=== PATIENT | female | born 1945 | race Caucasian/White ===

== ENCOUNTER 2023-11-30 08:52 | Inpatient (IN) | payer OTHER ==
[~2023-11-30] VITALS: Ht 154.9 cm; Wt 46.2 kg
[2023-11-30 09:44] LABS: Basophils # (auto) 0 10 ^3/uL (0-0.2); Basophils % (auto) 0.5 % (0.0-2.0); Eosinophils # (auto) 0 10 ^3/uL (0-0.8); Eosinophils % (auto) 0.3 % (0.0-7.0); Hematocrit 32.9 % (36.0-46.0); Lymphocytes # (auto) 1.2 10 ^3/uL (0.4-5.4); Lymphocytes % (auto) 16.6 % (10.0-50.0); Mean Corpuscular Hemoglobin 30.7 pg (28.0-32.0); Mean Corpuscular Hgb Conc. 33.4 g/dL (32.0-36.0); Monocytes # (auto) 0.6 10 ^3/uL (0-1.3); Monocytes % (auto) 8.2 % (0.0-12.0); Neutrophils # (auto) 5.4 10 ^3/uL (1.6-8.6); Neutrophils % (auto) 74.4 % (37.0-80.0); Red Blood Cells 3.57 10^6/uL (4.0-5.20); Red Cell Distribution Width 13.5 % (11.8-14.3); White Blood Cell 7.3 10^3/uL (4.4-10.8)
[2023-11-30 10:01] LABS: Alanine Aminotransferase 12 U/L (7-40); Albumin 3.9 g/dL (3.2-4.8); Alkaline Phosphatase 51 U/L (46-116); Anion Gap 14 (5-15); Aspartate Aminotransferase 16 U/L (13-40); BUN/Creatinine Ratio 30.8 (10.0-20.0); Bilirubin, Total 0.7 mg/dL (0.2-1.0); Carbon Dioxide 14 mmol/L (20-30); Chloride 106 mmol/L (98-107); Glucose 93 mg/dL (74-106); Potassium 3.6 mmol/L (3.5-5.1); Sodium 134 mmol/L (136-145); Total Protein 5.9 g/dL (5.7-8.2)
[2023-11-30 10:08] LABS: Blood Urea Nitrogen 93 mg/dL (9-23)
[2023-11-30] MEDS: SODIUM CHLORIDE 0.9% 1,000 ML IV ONE ×3 (11:37→13:30)
[2023-11-30 12:51] LABS: Urine Bacteria FEW /hpf (None Seen); Urine Blood Negative /uL (Negative); Urine Clarity Clear (Clear); Urine Color Colorless (Yellow); Urine Protein, UAD Negative (Negative); Urine Specific Gravity 1.007 (1.001-1.035); Urine Urobilinogen Normal (Negative); Urine WBC 1 /hpf (0 - 5)
[2023-11-30 13:08] VITALS: PULSE 81; RESP 17; O2SAT 100
[2023-11-30] MEDS ORDERED: NITROGLYCERIN 0.4 MG SL TAB SL PRN (13:30)
[2023-11-30] MEDS: levoFLOXacin 250MG 50 ML IV SCH (14:45)
[2023-11-30] MEDS: levoFLOXacin 500MG 100 ML IV ONE (14:45)
[2023-11-30 15:25] LABS: Rapid Influenza A Negative (Negative); Rapid Influenza B Negative (Negative)
[2023-11-30 15:31] LABS: COVID19 ANTIGEN SOFIA FIA NEGATIVE (NEGATIVE)
[2023-11-30] MEDS: cefTRIAXone 1GM/50ML D5W 50 ML IV ONE (16:01)
[2023-11-30] MEDS: SODIUM BICARBONATE 650 MG TAB PO SCH (23:17)
[2023-11-30] MEDS: MELATONIN 5 MG TAB PO SCH (23:17)
[2023-12-01] VITALS (8 sets, daily range): BP systolic 107–121; BP diastolic 50–79; PULSE 60–86; RESP 16–20; TEMP 97.5–98.4; O2SAT 97–100
[2023-12-01 07:04] LABS: Basophils # (auto) 0 10 ^3/uL (0-0.2); Basophils % (auto) 0.7 % (0.0-2.0); Eosinophils # (auto) 0 10 ^3/uL (0-0.8); Eosinophils % (auto) 0.5 % (0.0-7.0); Hematocrit 26.8 % (36.0-46.0); Lymphocytes % (auto) 16.6 % (10.0-50.0); Mean Corpuscular Hemoglobin 30.4 pg (28.0-32.0); Mean Corpuscular Hgb Conc. 33.4 g/dL (32.0-36.0); Mean Corpuscular Volume 90.9 fL (80.0-100.0); Monocytes # (auto) 0.5 10 ^3/uL (0-1.3); Monocytes % (auto) 7.8 % (0.0-12.0); Neutrophils # (auto) 4.4 10 ^3/uL (1.6-8.6); Neutrophils % (auto) 74.4 % (37.0-80.0); Red Blood Cells 2.95 10^6/uL (4.0-5.20); Red Cell Distribution Width 13.6 % (11.8-14.3); White Blood Cell 5.9 10^3/uL (4.4-10.8)
[2023-12-01 07:14] LABS: Albumin 3.1 g/dL (3.2-4.8); Alkaline Phosphatase 40 U/L (46-116); Anion Gap 11 (5-15); Aspartate Aminotransferase 16 U/L (13-40); BUN/Creatinine Ratio 22.4 (10.0-20.0); Bilirubin, Total 0.4 mg/dL (0.2-1.0); Carbon Dioxide 13 mmol/L (20-30); Glucose 78 mg/dL (74-106); Potassium 3.3 mmol/L (3.5-5.1); Sodium 140 mmol/L (136-145)
[2023-12-01 07:17] LABS: Chloride 116 mmol/L (98-107)
[2023-12-01 07:18] LABS: Alanine Aminotransferase < 9 U/L (7-40); Blood Urea Nitrogen 56 mg/dL (9-23)
[2023-12-01] MEDS: ACETAMINOPHEN 500 MG TAB PO PRN (10:14)
[2023-12-01] MEDS: POTASSIUM CHL 20 Meq TABLET PO ONE (10:15)
[2023-12-01] MEDS: cefTRIAXone 1GM/50ML D5W 50 ML IV SCH (10:15)
[2023-12-01] MEDS: PANTOPRAZOLE 40 MG/10 ML VIAL INJ IV SCH (10:16)
[2023-12-01] MEDS: SODIUM CHLORIDE 0.9% 1,000 ML IV SCH (10:19)
[2023-12-01] MEDS: Ensure HIGH Protein Chocolate 8oz Bottle PO SCH (13:21)
[2023-12-01] MEDS: SODIUM BICARB 50mEq/50ml Vial 50 ML in SOD CHL 0.45% 1,000 ML IV SCH (18:44)
[2023-12-02] VITALS (7 sets, daily range): BP systolic 119–139; BP diastolic 51–58; PULSE 60–88; RESP 18–22; TEMP 97.9–98.3; O2SAT 98–99
[2023-12-02 06:45] LABS: Basophils # (auto) 0 10 ^3/uL (0-0.2); Eosinophils # (auto) 0.1 10 ^3/uL (0-0.8); Hematocrit 25.2 % (36.0-46.0); Hemoglobin 8.2 g/dL (12.2-16.2); Monocytes # (auto) 0.4 10 ^3/uL (0-1.3); Monocytes % (auto) 8.6 % (0.0-12.0); Nucleated Red Blood Cells % 0.1 %; Red Blood Cells 2.74 10^6/uL (4.0-5.20)
[2023-12-02 06:49] LABS: Basophils % (auto) 0.8 % (0.0-2.0); Lymphocytes % (auto) 19.1 % (10.0-50.0); Mean Corpuscular Hgb Conc. 32.7 g/dL (32.0-36.0); Mean Corpuscular Volume 91.8 fL (80.0-100.0); Neutrophils # (auto) 3.5 10 ^3/uL (1.6-8.6); Neutrophils % (auto) 70.5 % (37.0-80.0)
[2023-12-02 06:53] LABS: Alkaline Phosphatase 37 U/L (46-116); Anion Gap 10 (5-15); BUN/Creatinine Ratio 18.7 (10.0-20.0); Calcium 7.5 mg/dL (8.7-10.4); Carbon Dioxide 14 mmol/L (20-30); Chloride 116 mmol/L (98-107); Glucose 74 mg/dL (74-106); Potassium 3.2 mmol/L (3.5-5.1); Sodium 140 mmol/L (136-145)
[2023-12-02 06:54] LABS: Albumin 2.8 g/dL (3.2-4.8); Aspartate Aminotransferase 11 U/L (13-40); Bilirubin, Total 0.4 mg/dL (0.2-1.0); Blood Urea Nitrogen 43 mg/dL (9-23); Total Protein 4.5 g/dL (5.7-8.2)
[2023-12-02 06:55] LABS: Alanine Aminotransferase < 9 U/L (7-40)
[2023-12-02 07:03] LABS: Magnesium 0.9 mg/dL (1.6-2.6)
[2023-12-02] MEDS: LIDOCAINE 5% TOPICAL PATCH TOP SCH (09:10)
[2023-12-02] MEDS: MAGNESIUM SULFATE 1GM/100ML 100 ML IV SCH (10:42)
[2023-12-02] MEDS: MAGNESIUM SULFATE 1GM/100ML 100 ML IV ONE ×2 (12:17→13:51)
[2023-12-02] MEDS: LACTATED RINGER'S 1,000 ML IV SCH ×2 (13:37→21:30)
[2023-12-02] MEDS: POTASSIUM CHL 20 Meq TABLET PO ONE (13:38)
[2023-12-02 16:46] LABS: Creatinine, Urine 30.82 mg/dL (30.0-125.0)
[2023-12-02 18:51] LABS: Albumin 2.9 g/dL (3.2-4.8); Alkaline Phosphatase 65 U/L (46-116); Anion Gap 11 (5-15); Aspartate Aminotransferase 12 U/L (13-40); BUN/Creatinine Ratio 15.9 (10.0-20.0); Bilirubin, Total < 0.2 mg/dL (0.2-1.0); Blood Urea Nitrogen 36 mg/dL (9-23); Calcium 7.9 mg/dL (8.7-10.4); Carbon Dioxide 15 mmol/L (20-30); Chloride 116 mmol/L (98-107); Glucose 133 mg/dL (74-106); Potassium 3.3 mmol/L (3.5-5.1); Sodium 142 mmol/L (136-145); Total Protein 4.8 g/dL (5.7-8.2)
[2023-12-02 18:55] LABS: Alanine Aminotransferase 9 U/L (7-40)
[2023-12-03] VITALS (7 sets, daily range): BP systolic 125–155; BP diastolic 54–66; PULSE 72–94; RESP 19–22; TEMP 97.5–98.1; O2SAT 98–99
[2023-12-03 06:58] LABS: Magnesium 1.7 mg/dL (1.6-2.6)
[2023-12-03 06:59] LABS: Phosphorus 3.3 mg/dL (2.4-5.1)
[2023-12-03 08:26] LABS: Alanine Aminotransferase 10 U/L (7-40); Albumin 2.7 g/dL (3.2-4.8); Alkaline Phosphatase 46 U/L (46-116); Anion Gap 10 (5-15); Aspartate Aminotransferase 13 U/L (13-40); BUN/Creatinine Ratio 14.9 (10.0-20.0); Bilirubin, Total 0.4 mg/dL (0.2-1.0); Blood Urea Nitrogen 31 mg/dL (9-23); Calcium 8.4 mg/dL (8.5-10.1); Carbon Dioxide 16 mmol/L (20-30); Chloride 116 mmol/L (98-107); Glucose 100 mg/dL (74-106); Potassium 3.4 mmol/L (3.5-5.1); Sodium 142 mmol/L (136-145); Total Protein 4.3 g/dL (5.7-8.2)
[2023-12-03] MEDS: MAGNESIUM SULFATE 1GM/100ML 100 ML IV SCH (09:09)
[2023-12-03] MEDS ORDERED: LACTATED RINGER'S 1,000 ML IV ONE (11:30)
[2023-12-03 12:28] LABS: Triglycerides 58 mg/dL (< 150)
[2023-12-03 12:29] LABS: LDL Cholesterol 18 mg/dL (< 100)
[2023-12-03 12:30] LABS: Cholesterol 83 mg/dL (< 200); HDL Cholesterol 47 mg/dL (40-59)
[2023-12-03] MEDS ORDERED: hydrALAZINE HCL 20 MG/ML VL IV PRN (13:15)
[2023-12-03] MEDS: MORPHINE SULFATE INJ 2 MG/ml SYRG IV PRN ×2 (14:17→23:43)
[2023-12-03] MEDS: ONDANSETRON HCL 4 MG/2 ML VIAL IV PRN (14:21)
[2023-12-03] MEDS: POTASSIUM CHL 20MEQ/100ML 100 ML IV ONE (14:24)
[2023-12-03] MEDS: D5W/LACTATED RINGERS 1,000 ML IV ONE (14:24)
[2023-12-03] MEDS: AMINO ACID INFUSION IN D10W 1,000 ML IV SCH (19:52)
[2023-12-03] MEDS: ACCU-CHEK COMFORT CURVE STRIP VI SCH (23:46)
[2023-12-03] MEDS: InsuLIN REG 1unit/0.01ml Soln (100units/ml) SC SCH (23:49)
[2023-12-04] MEDS ORDERED: DEXTROSE (50%) 50ML SYRG IV SCH
[2023-12-04 05:00] VITALS: BP 109/55; PULSE 99; RESP 20; TEMP 97.8; O2SAT 96
[2023-12-04 08:00] VITALS: PULSE 102
[2023-12-04 08:23] LABS: Basophils # (auto) 0 10 ^3/uL (0-0.2); Basophils % (auto) 0.3 % (0.0-2.0); Eosinophils # (auto) 0 10 ^3/uL (0-0.8); Eosinophils % (auto) 0.1 % (0.0-7.0); Hematocrit 28.7 % (36.0-46.0); Hemoglobin 8.9 g/dL (12.2-16.2); Lymphocytes # (auto) 0.6 10 ^3/uL (0.4-5.4); Lymphocytes % (auto) 5.3 % (10.0-50.0); Mean Corpuscular Hemoglobin 29.8 pg (28.0-32.0); Mean Corpuscular Hgb Conc. 30.9 g/dL (32.0-36.0); Mean Corpuscular Volume 96.7 fL (80.0-100.0); Monocytes % (auto) 8.4 % (0.0-12.0); Neutrophils # (auto) 10.1 10 ^3/uL (1.6-8.6); Neutrophils % (auto) 85.9 % (37.0-80.0); Red Blood Cells 2.97 10^6/uL (4.0-5.20); Red Cell Distribution Width 15.5 % (11.8-14.3); White Blood Cell 11.8 10^3/uL (4.4-10.8)
[2023-12-04] MEDS ORDERED: CLINIMIX PER PHARMACY 0 ML IV SCH (10:00)
[2023-12-04 10:11] LABS: Chloride 114 mmol/L (98-107); Sodium 139 mmol/L (136-145)
[2023-12-04 10:20] LABS: Calcium 8.8 mg/dL (8.5-10.1); Carbon Dioxide 18 mmol/L (20-30)
[2023-12-04 10:24] LABS: Alkaline Phosphatase 53 U/L (46-116)
[2023-12-04 10:25] LABS: BUN/Creatinine Ratio 13.9 (10.0-20.0); Blood Urea Nitrogen 28 mg/dL (9-23); Glucose 106 mg/dL (74-106)
[2023-12-04 10:27] LABS: Albumin 2.8 g/dL (3.2-4.8)
[2023-12-04 10:28] LABS: Bilirubin, Total 0.2 mg/dL (0.2-1.0); Phosphorus 2.8 mg/dL (2.4-5.1); Total Protein 4.5 g/dL (5.7-8.2)
[2023-12-04 10:48] LABS: Aspartate Aminotransferase 29 U/L (13-40)
[2023-12-04 11:01] LABS: Alanine Aminotransferase < 9 U/L (7-40); Potassium 5.5 mmol/L (3.5-5.1)
[2023-12-04 12:06] LABS: Magnesium 2.1 mg/dL (1.6-2.6)
[2023-12-04] MEDS: SODIUM CHLORIDE 0.9% 1,000 ML IV SCH (12:10)
[2023-12-04 13:00] VITALS: BP 166/83; PULSE 96; RESP 20; TEMP 98; O2SAT 100
[2023-12-04 13:04] LABS: Anion Gap 7 (5-15)
[2023-12-04 17:09] VITALS: BP 144/68; PULSE 93; RESP 20; TEMP 98.3; O2SAT 95
[2023-12-04] MEDS: CEFEPIME 1GM/ 50ML 50 ML IV SCH (17:21)
[2023-12-04 20:00] VITALS: PULSE 95
[2023-12-04 22:00] VITALS: BP 141/67; PULSE 101; RESP 18; TEMP 98.4; O2SAT 95
[2023-12-05] VITALS (7 sets, daily range): BP systolic 115–138; BP diastolic 53–70; PULSE 84–100; RESP 17–19; TEMP 97.7–98.6; O2SAT 94–98
[2023-12-05 05:24] LABS: Basophils # (auto) 0 10 ^3/uL (0-0.2); Basophils % (auto) 0.2 % (0.0-2.0); Eosinophils # (auto) 0 10 ^3/uL (0-0.8); Eosinophils % (auto) 0.3 % (0.0-7.0); Hematocrit 28.9 % (36.0-46.0); Hemoglobin 9.4 g/dL (12.2-16.2); Lymphocytes # (auto) 0.9 10 ^3/uL (0.4-5.4); Lymphocytes % (auto) 7.1 % (10.0-50.0); Mean Corpuscular Hemoglobin 30.1 pg (28.0-32.0); Mean Corpuscular Hgb Conc. 32.5 g/dL (32.0-36.0); Mean Corpuscular Volume 92.6 fL (80.0-100.0); Monocytes # (auto) 1.4 10 ^3/uL (0-1.3); Monocytes % (auto) 10.9 % (0.0-12.0); Neutrophils # (auto) 10.6 10 ^3/uL (1.6-8.6); Neutrophils % (auto) 81.5 % (37.0-80.0); Red Blood Cells 3.12 10^6/uL (4.0-5.20); Red Cell Distribution Width 14.3 % (11.8-14.3)
[2023-12-05 05:40] LABS: Albumin 2.5 g/dL (3.2-4.8); Alkaline Phosphatase 56 U/L (46-116); Anion Gap 8 (5-15); Aspartate Aminotransferase 12 U/L (13-40); BUN/Creatinine Ratio 17.6 (10.0-20.0); Blood Urea Nitrogen 33 mg/dL (9-23); Carbon Dioxide 18 mmol/L (20-30); Chloride 112 mmol/L (98-107); Glucose 86 mg/dL (74-106); Magnesium 1.6 mg/dL (1.6-2.6); Sodium 138 mmol/L (136-145)
[2023-12-05 05:41] LABS: Alanine Aminotransferase < 9 U/L (7-40); Bilirubin, Total 0.2 mg/dL (0.2-1.0); Phosphorus 2.2 mg/dL (2.4-5.1); Potassium 3.3 mmol/L (3.5-5.1); Total Protein 4.3 g/dL (5.7-8.2)
[2023-12-05] MEDS: MAGNESIUM SULFATE 1GM/100ML 100 ML IV ONE (12:15)
[2023-12-05] MEDS: POTASSIUM PHOSPHATE 22 MEQ in SODIUM CHL 0.9% 100 ML IV ONE (15:08)
[2023-12-06 05:00] VITALS: BP 135/50; PULSE 96; RESP 18; TEMP 98; O2SAT 93
[2023-12-06 06:25] LABS: Basophils # (auto) 0 10 ^3/uL (0-0.2); Basophils % (auto) 0.2 % (0.0-2.0); Eosinophils # (auto) 0 10 ^3/uL (0-0.8); Eosinophils % (auto) 0.4 % (0.0-7.0); Hematocrit 25.4 % (36.0-46.0); Hemoglobin 8.5 g/dL (12.2-16.2); Lymphocytes # (auto) 0.7 10 ^3/uL (0.4-5.4); Lymphocytes % (auto) 6.3 % (10.0-50.0); Mean Corpuscular Hemoglobin 30.4 pg (28.0-32.0); Mean Corpuscular Hgb Conc. 33.6 g/dL (32.0-36.0); Mean Corpuscular Volume 90.6 fL (80.0-100.0); Monocytes # (auto) 1.2 10 ^3/uL (0-1.3); Monocytes % (auto) 11.6 % (0.0-12.0); Neutrophils # (auto) 8.7 10 ^3/uL (1.6-8.6); Neutrophils % (auto) 81.5 % (37.0-80.0); Red Cell Distribution Width 14.2 % (11.8-14.3); White Blood Cell 10.7 10^3/uL (4.4-10.8)
[2023-12-06 06:39] LABS: Alkaline Phosphatase 61 U/L (46-116)
[2023-12-06 06:40] LABS: Albumin 2.5 g/dL (3.2-4.8); Amylase 323 U/L (30-118); Anion Gap 8 (5-15); Aspartate Aminotransferase 11 U/L (13-40); BUN/Creatinine Ratio 16.6 (10.0-20.0); Bilirubin, Total 0.3 mg/dL (0.2-1.0); Blood Urea Nitrogen 32 mg/dL (9-23); Calcium 8.1 mg/dL (8.7-10.4); Carbon Dioxide 18 mmol/L (20-30); Chloride 111 mmol/L (98-107); Glucose 72 mg/dL (74-106); Lipase 92 U/L (12-53); Potassium 3.4 mmol/L (3.5-5.1); Sodium 137 mmol/L (136-145); Total Protein 4.3 g/dL (5.7-8.2)
[2023-12-06 06:41] LABS: Alanine Aminotransferase < 9 U/L (7-40)
[2023-12-06 07:30] VITALS: PULSE 88
[2023-12-06 08:26] VITALS: BP 112/51; PULSE 100; RESP 18; TEMP 99.1; O2SAT 93
[2023-12-06 12:39] VITALS: BP 101/47; PULSE 102; RESP 16; TEMP 98.4; O2SAT 96
[2023-12-06 17:00] VITALS: BP 130/49; PULSE 94; RESP 16; TEMP 97.8; O2SAT 93
[2023-12-06 20:00] VITALS: PULSE 93
[2023-12-07] VITALS (7 sets, daily range): BP systolic 106–133; BP diastolic 46–84; PULSE 70–89; RESP 16–20; TEMP 96.7–98.6; O2SAT 91–96
[2023-12-07 06:59] LABS: Albumin 2.3 g/dL (3.2-4.8); Alkaline Phosphatase 57 U/L (46-116); Anion Gap 8 (5-15); Aspartate Aminotransferase 14 U/L (13-40); BUN/Creatinine Ratio 12.7 (10.0-20.0); Blood Urea Nitrogen 24 mg/dL (9-23); Carbon Dioxide 18 mmol/L (20-30); Chloride 111 mmol/L (98-107); Glucose 73 mg/dL (74-106); Lipase 48 U/L (12-53); Magnesium 1.5 mg/dL (1.6-2.6); Potassium 3.2 mmol/L (3.5-5.1); Sodium 137 mmol/L (136-145)
[2023-12-07 07:00] LABS: Bilirubin, Total 0.4 mg/dL (0.2-1.0); Total Protein 4.2 g/dL (5.7-8.2)
[2023-12-07 07:02] LABS: Basophils # (auto) 0 10 ^3/uL (0-0.2); Basophils % (auto) 0.1 % (0.0-2.0); Eosinophils # (auto) 0.1 10 ^3/uL (0-0.8); Hemoglobin 7.7 g/dL (12.2-16.2); Lymphocytes # (auto) 0.6 10 ^3/uL (0.4-5.4); Monocytes # (auto) 1.1 10 ^3/uL (0-1.3)
[2023-12-07 07:04] LABS: Alanine Aminotransferase < 9 U/L (7-40)
[2023-12-07 07:05] LABS: Hematocrit 23.2 % (36.0-46.0); Mean Corpuscular Hemoglobin 30.7 pg (28.0-32.0); Mean Corpuscular Hgb Conc. 33.1 g/dL (32.0-36.0); Mean Corpuscular Volume 92.8 fL (80.0-100.0); Monocytes % (auto) 11.9 % (0.0-12.0); Neutrophils # (auto) 7.7 10 ^3/uL (1.6-8.6); Red Blood Cells 2.49 10^6/uL (4.0-5.20); Red Cell Distribution Width 14.2 % (11.8-14.3); White Blood Cell 9.5 10^3/uL (4.4-10.8)
[2023-12-07 07:15] LABS: LDL Cholesterol 34 mg/dL (< 100); Triglycerides 57 mg/dL (< 150)
[2023-12-07 07:17] LABS: Cholesterol 66 mg/dL (< 200); HDL Cholesterol 21 mg/dL (40-59)
[2023-12-07] MEDS: MAGNESIUM SULFATE 1GM/100ML 100 ML IV SCH (10:39)
[2023-12-07] MEDS: POTASSIUM EFFERVESENT TAB 25 MEQ PO ONE (10:39)
[2023-12-07] MEDS: SODIUM CHLORIDE 0.9% 1,000 ML IV SCH (11:05)
[2023-12-08] VITALS (8 sets, daily range): BP systolic 105–145; BP diastolic 44–77; PULSE 70–85; RESP 14–20; TEMP 97.4–98.2; O2SAT 94–97
[2023-12-08 05:32] LABS: Basophils # (auto) 0 10 ^3/uL (0-0.2); Basophils % (auto) 0.2 % (0.0-2.0); Eosinophils # (auto) 0.1 10 ^3/uL (0-0.8); Hemoglobin 7.6 g/dL (12.2-16.2); Lymphocytes # (auto) 0.5 10 ^3/uL (0.4-5.4); Neutrophils # (auto) 7.7 10 ^3/uL (1.6-8.6); Red Cell Distribution Width 14.5 % (11.8-14.3)
[2023-12-08 05:34] LABS: Eosinophils % (auto) 1.1 % (0.0-7.0); Hematocrit 22.9 % (36.0-46.0); Lymphocytes % (auto) 5.8 % (10.0-50.0); Mean Corpuscular Hemoglobin 30.2 pg (28.0-32.0); Mean Corpuscular Volume 91.3 fL (80.0-100.0); Monocytes % (auto) 10.5 % (0.0-12.0); Neutrophils % (auto) 82.4 % (37.0-80.0); Red Blood Cells 2.51 10^6/uL (4.0-5.20); White Blood Cell 9.3 10^3/uL (4.4-10.8)
[2023-12-08 05:49] LABS: Alanine Aminotransferase 10 U/L (7-40); Albumin 2.4 g/dL (3.2-4.8); Alkaline Phosphatase 63 U/L (46-116); Anion Gap 7 (5-15); Aspartate Aminotransferase 17 U/L (13-40); BUN/Creatinine Ratio 13.4 (10.0-20.0); Bilirubin, Total 0.3 mg/dL (0.2-1.0); Blood Urea Nitrogen 25 mg/dL (9-23); Calcium 8.3 mg/dL (8.7-10.4); Carbon Dioxide 19 mmol/L (20-30); Chloride 110 mmol/L (98-107); Glucose 70 mg/dL (74-106); Lipase 48 U/L (12-53); Magnesium 1.7 mg/dL (1.6-2.6); Potassium 3.6 mmol/L (3.5-5.1); Sodium 136 mmol/L (136-145); Total Protein 4.3 g/dL (5.7-8.2)
[2023-12-08] MEDS: POTASSIUM CHL 20 Meq TABLET PO ONE (13:27)
[2023-12-08] MEDS: MAGNESIUM OXIDE 400 MG TAB PO ONE (13:28)
[2023-12-08] MEDS: ENSURE CLEAR Mixed Berry 8oz Carton PO SCH (17:38)
[2023-12-08] MEDS: MAGNESIUM OXIDE 400 MG TAB PO SCH (21:45)
[2023-12-09 05:00] VITALS: BP 127/54; PULSE 75; RESP 16; TEMP 97.6; O2SAT 99
[2023-12-09 07:57] LABS: Chloride 107 mmol/L (98-107); Potassium 3.5 mmol/L (3.5-5.1); Sodium 137 mmol/L (136-145)
[2023-12-09 07:58] LABS: Anion Gap 9 (5-15); Calcium 8.6 mg/dL (8.5-10.1); Carbon Dioxide 21 mmol/L (20-30)
[2023-12-09 08:00] VITALS: PULSE 78; PULSE 87; RESP 19; O2SAT 100
[2023-12-09 08:03] LABS: Blood Urea Nitrogen 24 mg/dL (9-23); Glucose 89 mg/dL (74-106)
[2023-12-09 09:00] VITALS: BP 144/56; PULSE 78; RESP 18; TEMP 97.9; O2SAT 100
[2023-12-09 13:00] VITALS: BP 146/75; PULSE 73; RESP 16; TEMP 98.2; O2SAT 93
[2023-12-09 17:00] VITALS: BP 150/58; PULSE 83; RESP 18; TEMP 97.5; O2SAT 100
[2023-12-09] MEDS: LOPERAMIDE HCL 2 MG CAP/TAB PO PRN (18:17)
[2023-12-09 20:00] VITALS: PULSE 78; PULSE 79; RESP 17; O2SAT 100
[2023-12-10 06:16] LABS: Calcium 8.4 mg/dL (8.7-10.4); Chloride 110 mmol/L (98-107); Potassium 3.4 mmol/L (3.5-5.1); Sodium 138 mmol/L (136-145)
[2023-12-10 06:17] LABS: Anion Gap 8 (5-15); Carbon Dioxide 20 mmol/L (20-30)
[2023-12-10 06:22] LABS: BUN/Creatinine Ratio 12.1 (10.0-20.0); Blood Urea Nitrogen 21 mg/dL (9-23); Glucose 87 mg/dL (74-106)
[2023-12-10 08:00] VITALS: BP 122/58; PULSE 74; PULSE 80; RESP 18; TEMP 97.6; O2SAT 100
[2023-12-10 09:00] VITALS: BP 122/58; PULSE 80; RESP 18; TEMP 97.6; O2SAT 100
[2023-12-10] MEDS: POTASSIUM CHL 20 Meq TABLET PO ONE (12:33)
[2023-12-10 13:00] VITALS: BP 124/92; PULSE 81; RESP 18; TEMP 97.6; O2SAT 100
[2023-12-10] MEDS: SODIUM CHLORIDE 0.9% 1,000 ML IV SCH (14:47)
[2023-12-10 20:00] VITALS: PULSE 71; RESP 16; O2SAT 100
[2023-12-10 20:15] VITALS: PULSE 77
[2023-12-11] VITALS (10 sets, daily range): BP systolic 125–148; BP diastolic 44–68; PULSE 69–95; RESP 16–18; TEMP 97.2–98.5; O2SAT 96–100
[2023-12-11 07:06] LABS: Basophils # (auto) 0 10 ^3/uL (0-0.2); Eosinophils # (auto) 0.1 10 ^3/uL (0-0.8); White Blood Cell 10.5 10^3/uL (4.4-10.8)
[2023-12-11 07:08] LABS: Basophils % (auto) 0.4 % (0.0-2.0); Hematocrit 21.1 % (36.0-46.0); Lymphocytes # (auto) 0.7 10 ^3/uL (0.4-5.4); Mean Corpuscular Hemoglobin 29.8 pg (28.0-32.0); Mean Corpuscular Volume 93.4 fL (80.0-100.0); Monocytes # (auto) 1.1 10 ^3/uL (0-1.3); Monocytes % (auto) 10.2 % (0.0-12.0); Neutrophils # (auto) 8.5 10 ^3/uL (1.6-8.6); Neutrophils % (auto) 81.4 % (37.0-80.0); Nucleated Red Blood Cells % 0.1 %; Red Blood Cells 2.25 10^6/uL (4.0-5.20); Red Cell Distribution Width 14.7 % (11.8-14.3)
[2023-12-11 07:20] LABS: Anion Gap 9 (5-15); Carbon Dioxide 21 mmol/L (20-30); Chloride 110 mmol/L (98-107); Potassium 3.8 mmol/L (3.5-5.1); Sodium 140 mmol/L (136-145)
[2023-12-11 07:22] LABS: Calcium 8.6 mg/dL (8.5-10.1)
[2023-12-11 07:26] LABS: BUN/Creatinine Ratio 11.7 (10.0-20.0); Blood Urea Nitrogen 21 mg/dL (9-23); Glucose 88 mg/dL (74-106)
[2023-12-11 07:34] LABS: Hemoglobin 6.7 g/dL (12.2-16.2)
[2023-12-11] MEDS: FUROSEMIDE 40 MG/4 ML VIAL IV ONE (11:33)
[2023-12-12 05:00] VITALS: BP 147/99; PULSE 73; RESP 18; TEMP 98.7; O2SAT 93
[2023-12-12 06:50] LABS: Anion Gap 8 (5-15); Carbon Dioxide 22 mmol/L (20-30); Chloride 110 mmol/L (98-107); Potassium 3.5 mmol/L (3.5-5.1); Sodium 140 mmol/L (136-145)
[2023-12-12 06:52] LABS: Basophils # (auto) 0 10 ^3/uL (0-0.2); Basophils % (auto) 0.4 % (0.0-2.0); Calcium 8.4 mg/dL (8.7-10.4); Eosinophils # (auto) 0.1 10 ^3/uL (0-0.8); Hematocrit 27.9 % (36.0-46.0); Hemoglobin 9.4 g/dL (12.2-16.2); Lymphocytes # (auto) 0.7 10 ^3/uL (0.4-5.4); Lymphocytes % (auto) 7.1 % (10.0-50.0); Mean Corpuscular Hemoglobin 30.4 pg (28.0-32.0); Mean Corpuscular Hgb Conc. 33.5 g/dL (32.0-36.0); Mean Corpuscular Volume 90.7 fL (80.0-100.0); Monocytes # (auto) 0.8 10 ^3/uL (0-1.3); Monocytes % (auto) 8.2 % (0.0-12.0); Neutrophils # (auto) 8.6 10 ^3/uL (1.6-8.6); Neutrophils % (auto) 83.3 % (37.0-80.0); Nucleated Red Blood Cells % 0.1 %; Red Blood Cells 3.07 10^6/uL (4.0-5.20); Red Cell Distribution Width 14.3 % (11.8-14.3); White Blood Cell 10.3 10^3/uL (4.4-10.8)
[2023-12-12 06:56] LABS: BUN/Creatinine Ratio 12.6 (10.0-20.0); Blood Urea Nitrogen 22 mg/dL (9-23); Glucose 95 mg/dL (74-106)
[2023-12-12 07:30] VITALS: PULSE 77; RESP 18; O2SAT 97
[2023-12-12 08:32] VITALS: BP 146/74; PULSE 79; RESP 18; TEMP 97.7; O2SAT 97
[2023-12-12] MEDS: FUROSEMIDE 40 MG/4 ML VIAL IV ONE (12:15)
[2023-12-12 12:36] VITALS: BP 152/51; PULSE 77; RESP 20; TEMP 97.6; O2SAT 98
[2023-12-12 14:38] VITALS: BP 146/74; PULSE 75; RESP 18; TEMP 98.5; O2SAT 95
== END 2023-12-12 16:00 | disposition home health service (06) | DRG 438 ==
LOC: EDBD 08:52 → ER 08:52 → TELE-WESTW 13:21 → TELE 13:21 → TELE-WESTW 23:17
PROVIDERS: ADMIT Internal Medicine Geriatric Medicine; ATTEND Internal Medicine Geriatric Medicine
PROC: 30233N1 Transfusion of Nonautologous Red Blood Cells into Peripheral Vein, Percutaneous Approach (ICD-10-PCS; principal; 2023-12-11)
PROC: 05HA33Z Insertion of Infusion Device into Left Brachial Vein, Percutaneous Approach (ICD-10-PCS; 2023-12-11)
PROC: B54NZZA Ultrasonography of Left Upper Extremity Veins, Guidance (ICD-10-PCS; 2023-12-11)
DX: K85.10 Biliary acute pancreatitis without necrosis or infection (principal); N17.0 Acute kidney failure with tubular necrosis; E44.0 Moderate protein-calorie malnutrition; E87.20 Acidosis, unspecified; N39.0 Urinary tract infection, site not specified; Z68.1 Body mass index [BMI] 19.9 or less, adult; J90 Pleural effusion, not elsewhere classified; J98.11 Atelectasis; Z20.822 Contact with and (suspected) exposure to COVID-19; K52.9 Noninfective gastroenteritis and colitis, unspecified; R62.7 Adult failure to thrive; E86.1 Hypovolemia; E87.6 Hypokalemia; M10.9 Gout, unspecified; K80.20 Calculus of gallbladder without cholecystitis without obstruction; E83.42 Hypomagnesemia; D64.9 Anemia, unspecified; E86.0 Dehydration; G89.29 Other chronic pain; E87.70 Fluid overload, unspecified; Z87.442 Personal history of urinary calculi; Z88.0 Allergy status to penicillin; Z82.3 Family history of stroke; Z80.3 Family history of malignant neoplasm of breast; Z82.49 Family history of ischemic heart disease and other diseases of the circulatory system; N18.30 Chronic kidney disease, stage 3 unspecified; I12.9 Hypertensive chronic kidney disease with stage 1 through stage 4 chronic kidney disease, or unspecified chronic kidney disease
CPT/HCPCS: 36415; 36600; 71045; 74176; 76705; 76775; 78226; 80048; 80053; 80061; 81001; 82140; 82150; 82570; 82805; 82962; 83605; 83690; 83735; 84100; 84133; 84300; 84443; 84484; 85025; 86301; 86850; 86900; 86901; 86920; 87086; 87088; 87186; 87426; 87493; 87804; 93306; 96361; 96365; 96367; 97110; 97116; 97163; 97530; 99291; C9113; G0378; J1815; J2405; J3480